=== PATIENT | male | born 1955 | race Caucasian/White ===

== ENCOUNTER 2019-04-02 10:17 | Inpatient (IN) | payer MEDICARE ==
[2019-04-02] MEDS ORDERED: KETOROLAC TROMETHAMINE 30 MG/1 ML VIAL IM ONE (10:36)
[2019-04-02] MEDS ORDERED: DIPHTH,PERTUSS(ACELL),TET 0.5 ML DISP.SYRIN IM ONE ×2 (10:37→11:01)
--- NOTE | 2019-04-02 10:43 | PDOC ---
History of Present Illness - General Chief Complaint: Pain, Acute Stated Complaint: RT. ARM PAIN/ FALL Time Seen by Provider: 04/02/19 10:29 History Source: Patient - History of Present Illness Occurred: reports: yesterday Pain Location: reports: lower extremity, upper extremity Past History - Past Medical History Allergies/Adverse Reactions: Allergies Allergy/AdvReac Type Severity Reaction Status Date / Time No Known Allergies Allergy Verified 04/02/19 10:21 - Suicide/Smoking/Psychosocial Hx Smoking History: Never smoked Review of Systems - Review of Systems Respiratory: No: Shortness of Breath Cardiac (ROS): No: Chest Pain ABD/GI: No: Nausea, Vomiting Musculoskeletal: Yes: Joint Pain. No: Back Pain, Neck Pain Neurological: No: Headache, Numbness, Tingling, Weakness, Dizziness *Physical Exam - Vital Signs Last Vital Signs Temp Pulse Resp BP Pulse Ox 98.7 F 94 H 18 166/94 99 04/02/19 10:21 04/02/19 10:21 04/02/19 10:21 04/02/19 10:21 04/02/19 10:21 - Physical Exam General Appearance: Yes: Appropriately Dressed, Mild Distress HEENT: positive: Normal Voice Neck: positive: Supple. negative: Tender, Decreased range of motion Respiratory/Chest: positive: Lungs Clear, Normal Breath Sounds. negative: Respiratory Distress Cardiovascular: positive: Regular Rate, S1, S2 Gastrointestinal/Abdominal: positive: Soft. negative: Tender Musculoskeletal: positive: Other (~3cm linear lac to R mccann, abrasion to L mccann) Extremity: positive: Other (+deformity w/ ecchymosis and LROM to R shoulder, no snuffbox ttp, NVI) Integumentary: positive: Dry, Warm Neurologic: positive: Fully Oriented, Alert, Motor Strength 5/5 Deep Tendon Reflexes: Tricep (R): 2+ ED Treatment Course - LABORATORY CBC & Chemistry Diagram: 04/02/19 12:32 04/02/19 11:43 - RADIOLOGY Radiology Studies Ordered: Category Date Time Status SHOULDER-RIGHT [RAD] Stat Radiology 04/02/19 10:37 Ordered Medical Decision Making - Medical Decision Making 04/02/19 10:39 63-year-old male, denies any past medical history, here with multiple injuries s /pfall. Patient states yesterday morning he fell 5 feet off a ladder and injured b/l lower extremities and R shoulder. Denies hitting head, and no LOC, headache, dizziness, nausea or vomiting. Not on any blood thinners. Ambulatory since fall. No CP/dizziness prior to fall See exam RLE lac and possible R shoulder/fx/dislocation s/p mechanical fall yesterday No head injury and not on blood thinners -pain control -boostrix -XR -lac repair -anticipate dc 04/02/19 11:26 Patient has dislocated humeral head fracture on x-ray. Will get pre-op labs. Ortho consulted and PA states he will discuss case w/ ortho attg and call me back with plan 04/02/19 13:56 After > 1 hr, no call back from ortho despite multiple attempts by scribes. Pt continues to c/o pain. Case d/w Dr Taylor and pt admitted. Ortho informed of dispo and will follow inhouse *DC/Admit/Observation/Transfer Diagnosis at time of Disposition: Shoulder fracture, right Qualifiers: Encounter type: initial encounter Fracture type: closed Qualified Code(s): S42.91XA - Fracture of right shoulder girdle, part unspecified, initial encounter for closed fracture - Discharge Dispostion Decision to Admit order: Yes - Referrals Referrals: Angie Taylor MD [Primary Care Provider] - - Patient Instructions - Post Discharge Activity
[2019-04-02] MEDS ORDERED: KETOROLAC TROMETHAMINE 30 MG/1 ML VIAL ONE (11:01)
[2019-04-02 12:15] LABS: INR 0.97 (0.83-1.09); PROTHROMBIN TIME (PATIENT) 11.4 SEC (9.7-13.0)
[2019-04-02 12:19] LABS: BILIRUBIN,TOTAL 1.6 mg/dL (0.2-1); BLOOD UREA NITROGEN 13.9 mg/dL (7-18); CALCIUM 9.2 mg/dL (8.5-10.1); CREATININE 1.2 mg/dL (0.55-1.3); POTASSIUM 4.1 mmol/L (3.5-5.1); TOT PROT 7.4 g/dl (6.4-8.2)
--- NOTE | 2019-04-02 12:23 | PDOC ---
*Physical Exam - Vital Signs Last Vital Signs Temp Pulse Resp BP Pulse Ox 98.7 F 94 H 18 166/94 99 04/02/19 10:21 04/02/19 10:21 04/02/19 10:21 04/02/19 10:21 04/02/19 10:21 ED Treatment Course - LABORATORY CBC & Chemistry Diagram: 04/02/19 11:43 04/02/19 11:43 - ADDITIONAL ORDERS Additional order review: Laboratory Results 04/02/19 04/02/19 11:43 11:43 PT with INR 11.40 INR 0.97 Sodium 136 Potassium 4.1 Chloride 101 Carbon Dioxide 28 Anion Gap 8 BUN 13.9 Creatinine 1.2 Est GFR (CKD-EPI)AfAm 73.11 Est GFR (CKD-EPI)NonAf 63.08 Random Glucose 144 H Calcium 9.2 Total Bilirubin 1.6 H AST 54 H ALT 45 Alkaline Phosphatase 80 Total Protein 7.4 Albumin 4.0 04/02/19 11:43 RBC Cancelled MCV Cancelled MCHC Cancelled RDW Cancelled MPV Cancelled Neutrophils % Cancelled Lymphocytes % Cancelled Monocytes % Cancelled Eosinophils % Cancelled Basophils % Cancelled - Medications Given in the ED: ED Medications Discontinued Medications Generic Name Dose Route Start Last Admin Trade Name Freq PRN Reason Stop Dose Admin Diphtheria/Tetanus/Acell Pertussis 0.5 ml 04/02/19 10:37 04/02/19 11:10 Boostrix - IM 04/02/19 10:38 0.5 ml .ONCE ONE Administration Ketorolac Tromethamine 30 mg 04/02/19 10:36 04/02/19 11:10 Toradol Injection - IM 04/02/19 10:37 30 mg ONCE ONE Administration Medical Decision Making - Medical Decision Making 04/02/19 12:22 Patient seen and evaluated with the nurse practitioner. I agree with the overall evaluation, assessment, and management with the following summary of visit: 64-year-old male presents with right shoulder and right leg pain status post mechanical fall yesterday. Agree with exam findings right upper extremity shoulder swelling and tenderness with limited range of motion, neurovascularly intact distally with full hamstring. Right mccann laceration X-ray findings as noted Orthopedics consult, sling applied Laceration repair per procedure note Disposition accordingly *DC/Admit/Observation/Transfer - Referrals Referrals: Angie Taylor MD [Primary Care Provider] - - Patient Instructions - Post Discharge Activity
[2019-04-02 12:46] LABS: BASO % 0.8 % (0-2.0); HEMATOCRIT 37.7 % (35.4-49); HEMOGLOBIN 13.2 GM/dL (11.7-16.9); LYMPH % 10.6 % (8-40); MCH 35.9 pg (25.7-33.7); MCHC 34.9 g/dl (32.0-35.9); MEAN PLT VOLUME 8.2 fl (7.5-11.1); MONO % 9.3 % (3.8-10.2); NEUT % 79.3 % (42.8-82.8); PLATELET COUNT 180 K/MM3 (134-434); RBC 3.66 M/mm3 (4.00-5.60); RDW 12.9 % (11.9-15.9); WHITE BLOOD COUNT 8.2 K/mm3 (4.0-10.0)
--- NOTE | 2019-04-02 12:46 | PDOC ---
*Physical Exam - Vital Signs Last Vital Signs Temp Pulse Resp BP Pulse Ox 98.7 F 94 H 18 166/94 99 04/02/19 10:21 04/02/19 10:21 04/02/19 10:21 04/02/19 10:21 04/02/19 10:21 ED Treatment Course - LABORATORY CBC & Chemistry Diagram: 04/02/19 12:32 04/02/19 11:43 - ADDITIONAL ORDERS Additional order review: Laboratory Results 04/02/19 04/02/19 11:43 11:43 PT with INR 11.40 INR 0.97 Sodium 136 Potassium 4.1 Chloride 101 Carbon Dioxide 28 Anion Gap 8 BUN 13.9 Creatinine 1.2 Est GFR (CKD-EPI)AfAm 73.11 Est GFR (CKD-EPI)NonAf 63.08 Random Glucose 144 H Calcium 9.2 Total Bilirubin 1.6 H AST 54 H ALT 45 Alkaline Phosphatase 80 Total Protein 7.4 Albumin 4.0 04/02/19 11:43 RBC Cancelled MCV Cancelled MCHC Cancelled RDW Cancelled MPV Cancelled Neutrophils % Cancelled Lymphocytes % Cancelled Monocytes % Cancelled Eosinophils % Cancelled Basophils % Cancelled - Medications Given in the ED: ED Medications Discontinued Medications Generic Name Dose Route Start Last Admin Trade Name Freq PRN Reason Stop Dose Admin Diphtheria/Tetanus/Acell Pertussis 0.5 ml 04/02/19 10:37 04/02/19 11:10 Boostrix - IM 04/02/19 10:38 0.5 ml .ONCE ONE Administration Ketorolac Tromethamine 30 mg 04/02/19 10:36 04/02/19 11:10 Toradol Injection - IM 04/02/19 10:37 30 mg ONCE ONE Administration Medical Decision Making - Medical Decision Making 04/02/19 12:47 Right lower extremity 4cm linear laceration repaired. See PA note for complete H &P *DC/Admit/Observation/Transfer Diagnosis at time of Disposition: Shoulder fracture, right Qualifiers: Encounter type: initial encounter Fracture type: closed Qualified Code(s): S42.91XA - Fracture of right shoulder girdle, part unspecified, initial encounter for closed fracture - Referrals - Patient Instructions - Post Discharge Activity Procedures - Laceration/Wound Repair Right Lower Anterior Leg Wound Length: 2.6 to 5.0 cm Wound Explored: clean, no foreign body present Wound's Depth, Shape: superficial, linear Irrigated w/ Saline: Yes Betadine Prep: No Anesthesia: 1% Lidocaine Amount of Anesthetic (ccs): 3 Wound Repaired With: Sutures Suture Size/Type: 4:0, nylon Number of Sutures: 9 Layer Closure: No Sterile Dressing Applied: No Splint Applied: No
[2019-04-02] MEDS ORDERED: morphine CARPU-JECT 4 MG/1 ML DISP.SYRIN IVPUSH ONE (14:18)
[2019-04-02] MEDS ORDERED: MORPHINE SULFATE 2 MG/ML VIAL ONE (14:22)
[2019-04-02 14:50] LABS: EPI CELLS 5.1 /HPF (0-5/HPF); HYALINE CASTS 10 /lpf (0-8); URINE APPEARANCE CLOUDY; URINE BACTERIA 26.6 /hpf (NEGATIVE); URINE BILIRUBIN 1+ (NEGATIVE); URINE COLOR ORANGE; URINE GLUCOSE (UA) TRACE (NEGATIVE); URINE KETONE TRACE (NEGATIVE); URINE LEUK ESTERASE NEGATIVE (NEGATIVE); URINE NITRITE POSITIVE (NEGATIVE); URINE PROTEIN 1+ (NEGATIVE); URINE RBC 3 /hpf (0-4); URINE WBC 3 /hpf (0-5)
--- NOTE | 2019-04-02 16:21 | EKG ---
Test Reason : Blood Pressure : / mmHG Vent. Rate : 082 BPM Atrial Rate : 082 BPM P-R Int : 192 ms QRS Dur : 100 ms QT Int : 406 ms P-R-T Axes : 024 -04 029 degrees QTc Int : 474 ms NORMAL SINUS RHYTHM INFERIOR INFARCT , AGE UNDETERMINED POSSIBLE ANTERIOR INFARCT , AGE UNDETERMINED ABNORMAL ECG NO PREVIOUS ECGS AVAILABLE Confirmed by MD Pardo Edward ([id number]) on 04/02/2019 4:21:12 PM Referred By: Confirmed By:Devyn Pardo MD
[2019-04-02] MEDS ORDERED: DOCUSATE SODIUM 100 MG CAPSULE (FP) PO ONE (17:29)
[2019-04-02] MEDS ORDERED: oxyCODONE HCL 5 MG TABLET PO PRN (17:31)
[2019-04-02] MEDS ORDERED: ACETAMINOPHEN 325 MG TABLET (FP) PO PRN ×2 (17:33→17:42)
[2019-04-02] MEDS ORDERED: IBUPROFEN 600 MG TABLET (FP) PO PRN ×2 (17:33→17:42)
--- NOTE | 2019-04-02 17:42 | CONSULT ---
Consult Consult Specialty:: ORTHO - History of Present Illness History of Present Illness: 64y/o male c/o right shoulder pain x1 day. he fell from a ladder yesterday and landed on his right side. He came to the ER this morning in pain. Was admitted. Pain worse with movement and better with rest. Denies any numbness or tingling in the extremity. No other associated, aggravating or relieving factors. - History Source Limitations to Obtaining History: No Limitations - Smoking History Smoking history: Never smoked Home Medications - Allergies Allergies/Adverse Reactions: Allergies Allergy/AdvReac Type Severity Reaction Status Date / Time No Known Allergies Allergy Verified 04/02/19 10:21 - Home Medications Home Medications: Ambulatory Orders Amlodipine Besylate [Norvasc -] 5 mg PO DAILY 04/02/19 Losartan Potassium [Cozaar -] 50 mg PO DAILY 04/02/19 Simvastatin 40 mg PO DAILY 04/02/19 Physical Exam Vital Signs: Vital Signs Temperature 98.3 F 04/02/19 14:45 Pulse Rate 78 04/02/19 14:45 Respiratory Rate 17 04/02/19 14:45 Blood Pressure 151/89 04/02/19 14:45 O2 Sat by Pulse Oximetry (%) 98 04/02/19 14:45 Constitutional: Yes: Well Nourished, No Distress, Calm Musculoskeletal: Yes: Other (Right shoulder: Moderate edema of the shoulder. Pain with motion of the shoulder. Diffuse tenderness along the proximal humerus. No tendnerness along the elbow, forearm, wrist or hand. Sensation intact distally. Good strengh with fingers spread, ok sign, thumbs up. Comparments soft.) Labs: CBC, BMP 04/02/19 12:32 04/02/19 11:43 Imaging - Results X-ray: Report Reviewed, Image Reviewed (Displaced proximal humerus fx.) Assessment/Plan #1 right proximal humerus fx -Plan for ORIF . Case discussed with Dr. castanon. -Pain control -Sling immoblization -NPO after midnight
[2019-04-02 17:49] VITALS: BMI 26.4
[2019-04-02] MEDS: oxyCODONE HCL 5 MG TABLET PO PRN (18:41)
[2019-04-02] MEDS: ATORVASTATIN CA 20 MG TABLET (FP) PO SCH (21:55)
[2019-04-03] MEDS: oxyCODONE HCL 5 MG TABLET PO PRN ×4 (04:24→21:55)
[2019-04-03] MEDS ORDERED: CEFAZOLIN 1 GM in DEXTROSE 5%-WATER - 50 ML IVPB SCH (09:15)
[2019-04-03] MEDS ORDERED: ceFAZolin SODIUM 1 GM VIAL ONE ×2 (10:01→17:14)
[2019-04-03] MEDS ORDERED: DEXTROSE 5%-WATER - 50 ML IVPB ONE ×2 (10:02→17:14)
[2019-04-03] MEDS: amLODIPine BESYLATE 5 MG TABLET (FP) PO SCH (10:04)
[2019-04-03] MEDS: CEFAZOLIN 1 GM in DEXTROSE 5%-WATER - 50 ML IVPB SCH ×2 (10:04→17:29)
--- NOTE | 2019-04-03 10:50 | HP ---
DATE OF ADMISSION: 04/02/2019 HISTORY OF PRESENT ILLNESS: This is a 64-year-old male known to have hypertension, hyperlipidemia, who was doing some painting work, fell from the ladder about 5 feet high and fractured his right humerus. In the ER, he was evaluated by the ortho the open reduction, internal fixation scheduled for surgery on . Patient mainly admitted to the hospital for pain management. At this time, he is tolerating the pain well. PHYSICAL EXAMINATION: Vital signs: Today, his blood pressure is 150/95, pulse 62, respirations 20, temperature 98. HEENT: Unremarkable. Neck: Supple. No JVD. Lungs: Clear. Heart: S1, S2 normal. No S3, S4. Abdomen: Soft. Extremities: Legs, no edema. Neurological: Examination grossly normal. DIAGNOSTIC DATA: X-ray of the right shoulder shows displaced fracture, head of right humerus. EKG, normal sinus rhythm. LABORATORY REPORTS: Chemistry: Sodium 136, potassium 4.1, chloride 101, CO2 at 28, BUN 13.9, creatinine 1.2. WBC 8, hemoglobin 13.3, platelet count 180. FINAL DIAGNOSIS: Fracture, right shoulder, hypertension, hyperlipidemia. Patient is cleared for the surgical intervention. No anesthesia problems. Noe [id number]
--- NOTE | 2019-04-03 13:14 | PN ---
Progress Note (short form) - Note Progress Note: This is a 64 yo male found to have right proximal humerus fracture s/p mechanical fall 2 days ago. Patient is sitting up comfortably in bed, right arm in sling. Had some pain overnight. Denies any numbness, tingling down his arm. Last Vital Signs Temp Pulse Resp BP Pulse Ox 98.2 F 99 H 20 151/95 98 04/03/19 06:26 04/03/19 06:26 04/03/19 06:26 04/03/19 06:26 04/02/19 21:00 PE: RUE Diffuse ecchymosis to upper arm Moderate edema to shoulder Tenderness about the proximal humerus NVI Abnormal Lab Results 04/02/19 14:28 Urine Protein 1+ H Urine Ketones Trace H Urine Nitrite Positive H Urine Bilirubin 1+ H A: right proximal humerus fracture P: Plan for ORIF tomorrow afternoon NPO at midnight CT of right UE ordered Remain in sling Pain control
[2019-04-03] MEDS: ATORVASTATIN CA 20 MG TABLET (FP) PO SCH (21:18)
[2019-04-04] MEDS ORDERED: DEXTROSE 5%-WATER - 50 ML IVPB ONE ×3 (01:19→16:53)
[2019-04-04] MEDS ORDERED: ceFAZolin SODIUM 1 GM VIAL ONE ×3 (01:19→16:53)
[2019-04-04] MEDS: CEFAZOLIN 1 GM in DEXTROSE 5%-WATER - 50 ML IVPB SCH ×3 (02:00→17:38)
[2019-04-04] MEDS: amLODIPine BESYLATE 5 MG TABLET (FP) PO SCH (09:40)
[2019-04-04] MEDS: oxyCODONE HCL 5 MG TABLET PO PRN ×2 (09:40→21:31)
--- NOTE | 2019-04-04 09:46 | PN ---
Progress Note, Physician Chief Complaint: Pain Rt shoulder History of Present Illness: Scheduled for Rt shoulder ORISF - Current Medication List Current Medications: Active Medications Acetaminophen (Tylenol -) 650 mg PO Q4H PRN PRN Reason: PAIN LEVEL 1 - 3 Last Admin: 04/03/19 17:30 Dose: 650 mg Amlodipine Besylate (Norvasc -) 5 mg PO DAILY MARNI Last Admin: 04/04/19 09:40 Dose: 5 mg Atorvastatin Calcium (Lipitor -) 20 mg PO HS MARNI Last Admin: 04/03/19 21:18 Dose: 20 mg Cefazolin Sodium 1 gm/ (Dextrose) 50 mls @ 100 mls/hr IVPB Q8H-IV MARNI Last Admin: 04/04/19 09:39 Dose: 100 mls/hr Ibuprofen (Motrin -) 600 mg PO Q6H PRN PRN Reason: PAIN LEVEL 4 - 6 Oxycodone HCl (Roxicodone -) 5 mg PO Q4H PRN PRN Reason: PAIN LEVEL 1-5 Last Admin: 04/04/19 09:40 Dose: 5 mg Oxycodone HCl (Roxicodone -) 5 mg PO Q4H PRN PRN Reason: PAIN LEVEL 6-10 Last Admin: 04/03/19 21:55 Dose: 5 mg - Objective Vital Signs: Vital Signs Temperature 98.1 F 04/04/19 05:41 Pulse Rate 85 04/04/19 05:41 Respiratory Rate 21 H 04/04/19 05:41 Blood Pressure 124/88 04/04/19 05:41 O2 Sat by Pulse Oximetry (%) 98 04/03/19 21:00 Constitutional: Yes: Mild Distress Eyes: Yes: WNL HENT: Yes: WNL Neck: Yes: WNL Cardiovascular: Yes: WNL Respiratory: Yes: WNL Gastrointestinal: Yes: Normal Bowel Sounds ...Rectal Exam: Yes: WNL, Deferred Genitourinary: Yes: WNL Breast(s): Yes: WNL Edema: No Peripheral Pulses WNL: Yes Neurological: Yes: Alert Labs: CBC, BMP 04/02/19 12:32 04/02/19 11:43 INR, PTT INR 0.97 (0.83-1.09) 04/02/19 11:43 Assessment/Plan Cleared for surgery
--- NOTE | 2019-04-04 17:54 | PN ---
Progress Note (short form) - Note Progress Note: Pt lying in bed pain controlled no new complaints PE af vss RUE in sling thumbs up, ok sign, finger cross intact sens int to LT Cr<2 A: R proximal humerus fracture P: pt was scheduled for surgery today but case got bumped rather than start late at night, it was felt that postponing to tomorrow was a safer option pt will be on schedule for 330pm, NPO after 7AM ( can have early breakfast) reviewed surgical r/b/a with patient risks include bleeding, infection, neurovascular injury, need for further surgery, post op pain and stiffness, nonunion, malunion, hardware failure or cutout reviewed option of reverse replacement if shoulder doesn't heal reviewed post op rehabilitation protocol addressed pts questions and concerns plan for OR tomorrow
[2019-04-04] MEDS: ATORVASTATIN CA 20 MG TABLET (FP) PO SCH (21:32)
[2019-04-05] MEDS ORDERED: ceFAZolin SODIUM 1 GM VIAL ONE ×3 (01:38→16:45)
[2019-04-05] MEDS ORDERED: DEXTROSE 5%-WATER - 50 ML IVPB ONE ×3 (01:38→16:45)
[2019-04-05] MEDS: CEFAZOLIN 1 GM in DEXTROSE 5%-WATER - 50 ML IVPB SCH ×3 (01:43→18:52)
[2019-04-05] MEDS: amLODIPine BESYLATE 5 MG TABLET (FP) PO SCH (09:14)
[2019-04-05] MEDS ORDERED: BUPIVACAINE HCL/PF 0.5% (5MG/ML) 10 ML VIAL ONE (15:50)
[2019-04-05] MEDS ORDERED: DEXAMETHASONE SOD PHOSPHATE 4 MG/1 ML VIAL ONE ×2 (15:50→17:39)
[2019-04-05] MEDS ORDERED: PROPOFOL 20 ML ONE ×2 (15:50→19:59)
[2019-04-05] MEDS ORDERED: ROCURONIUM BROMIDE 50 MG/5 ML SYRINGE ONE (15:52)
[2019-04-05] MEDS ORDERED: DEXAMETHASONE SOD PHOSPHATE/PF 10 MG/ML SDV ONE (15:53)
[2019-04-05] MEDS ORDERED: SUCCINYLCHOLINE CHLORIDE 200 MG/10 ML SYRINGE ONE (15:53)
[2019-04-05] MEDS ORDERED: MIDAZOLAM HCL 2 MG/2 ML SINGLE DOSE VIAL ONE ×3 (15:53→19:01)
[2019-04-05] MEDS ORDERED: ceFAZolin SODIUM 1 GM VIAL IVPB ONE (16:20)
[2019-04-05] MEDS ORDERED: LIDOCAINE 1%-EPI 1:100,000 30 ML MDV IJ ONE (16:49)
[2019-04-05] MEDS ORDERED: TRANEXAMIC ACID 1000 MG/10 ML VIAL ONE (16:50)
[2019-04-05] MEDS ORDERED: KETOROLAC TROMETHAMINE 30 MG/1 ML VIAL ONE (17:39)
[2019-04-05] MEDS ORDERED: BACITRACIN 50,000 UNITS VIAL NR ONE (19:54)
[2019-04-05] MEDS ORDERED: ACETAMINOPHEN 325 MG TABLET (FP) PO PRN ×2 (20:26→20:44)
[2019-04-05] MEDS ORDERED: ACETAMINOPHEN 1000 MG/100 ML VIAL (NON FORMULARY) IVPB ONE (20:32)
[2019-04-05] MEDS ORDERED: ONDANSETRON 4 MG/2 ML VIAL IVPUSH PRN (20:32)
[2019-04-05] MEDS ORDERED: LACTATED RINGERS SOLUTION 1,000 ML/1,000 ML INFUS.BAG IV SCH (20:45)
[2019-04-05] MEDS ORDERED: LACTATED RINGERS SOLUTION 1,000 ML IV SCH (20:45)
[2019-04-05] MEDS ORDERED: PT OWN MED DRAWER 7, Y5N ONE (21:46)
[2019-04-05] MEDS ORDERED: ATORVASTATIN CA 20 MG TABLET (FP) PO SCH (22:00)
[2019-04-05] MEDS: oxyCODONE HCL 10 MG SUSTAINED ACTING TABLET PO SCH (22:02)
[2019-04-05] MEDS: INDOMETHACIN 25 MG CAPSULE PO SCH (22:03)
[2019-04-06] MEDS ORDERED: DEXTROSE 5%-WATER - 50 ML IVPB ONE ×2 (01:03→09:19)
[2019-04-06] MEDS ORDERED: ceFAZolin SODIUM 1 GM VIAL ONE ×2 (01:03→09:19)
[2019-04-06] MEDS: CEFAZOLIN 1 GM in DEXTROSE 5%-WATER - 50 ML IVPB SCH ×2 (02:35→09:28)
[2019-04-06] MEDS: INDOMETHACIN 25 MG CAPSULE PO SCH (06:11)
--- NOTE | 2019-04-06 06:36 | OP ---
DATE OF OPERATION: 04/05/2019 PREOPERATIVE DIAGNOSIS: Right proximal humerus fracture. POSTOPERATIVE DIAGNOSIS: Right proximal humerus fracture. PROCEDURE: Right proximal humerus hemiarthroplasty. SURGEON: Channing Mims M.D. HVAC OPERATIONS TECHNICIAN: Dee Celestin, physician environmental assistant, whose skillful assistance was necessary for the safe and timely performance of this procedure. Ms. Baca was able to provide limb positioning, retraction, assist in excising the bony fragments of the fractured head as well as inserting component and providing rotator cuff repair afterwards. ANESTHESIA: Regional plus LMA. POSTOPERATIVE CONDITION: Stable. COMPLICATIONS: None. IMPLANTS: [place] cemented fracture stem size 11 with size 52 x 17 mm humeral head and antibiotic cement. INDICATIONS: This is a pleasant gentleman who suffered a comminuted proximal humerus fracture. Given the wide displacement present and comminution present, it was felt that operative management was his best option. We discussed that based on his CT, it was felt that an open reduction, internal fixation would provide satisfactory fixation albeit with the risk of potentially not healing. We discussed the option of hemiarthroplasty should the fracture not be fixable. I reviewed surgical risks including bleeding, infection, neurovascular injury, need for further surgery, postoperative pain and stiffness, nonunion, malunion, hardware failure or cutout, shoulder instability, possible need for conversion later to a total reverse total shoulder replacement. We discussed medical risks such as heart attack, stroke, DVT, PE and . I discussed the use of perioperative antibiotic and DVT prophylaxis. I addressed all the patient's questions and concerns, he voiced understanding, and elected to proceed. DESCRIPTION OF PROCEDURE: The patient was brought to the operating room after administration of regional block in the preoperative holding area. The patient was then placed into the beach chair position, careful to pad all the bony prominences, maintain neutral alignment of the cervical spine. The right upper extremity was then prepped and draped in the usual sterile fashion. A preoperative dose of antibiotics given, and the usual timeout procedure was performed. The incision was now planned out over the anterior portion of the shoulder just lateral to the coracoid. Incision was made through skin and through subcutaneous tissue. Electrocautery was used to maintain hemostasis. The area around the incision was injected prior to the incision with 1% lidocaine with epinephrine to limit bleeding. The fascia over the deltopectoral interval was identified. Using blunt spreading, the cephalic vein was identified and then retracted and the interval was exposed using finger dissection down to the anterior aspect of the humerus. The humerus was now encountered, found to be highly comminuted as anticipated. Using a Derra retractor, the lateral aspect was exposed. The lesser tuberosity and greater tuberosity fragments were now sutured using FiberWire suture. The periosteal elevator was now slid down the lateral aspect of the humerus in order to provide a seating spot for the plate. A curet was used to remove any soft callus from the bony debris, which was too small to repair fracture site. The wound was irrigated. A plate was now chosen and affixed to the lateral aspect of the humerus utilizing the single 3.5 screw in the sliding hole as well as a single K-wire to maintain the alignment of the plate. Plate height was verified fluoroscopically. The tuberosity fragments were now reduced to the plate and K-wires were inserted. At this point, the humeral head was seen on fluoroscopy to be now reduced and significantly impacted. An elevator was placed into the joint to the humeral head through the rotator interval. After placing the elevator, it was found that the humeral head was free of all soft tissue attachments. Given the complete lack of soft tissue attachments, it was felt that the head would be most likely nonviable, would have a high risk of going on to avascular necrosis. After making this determination, it was felt that hemiarthroplasty provided better outcome for the patient than trying to fix the humeral head which had a high risk of failing. The humeral head was then manually withdrawn without having to remove any soft tissue attachments. Some of the bony comminution was removed about the fracture site. The tuberosity fragments were debrided so that only a cortical shell and a small amount of medullary bone were left. This provided a smooth surface for later fixation to the prosthesis. The Derra retractor was now placed behind the humeral shaft and canal finder was passed. Hand reaming was then done up to a size 13. The trial was now inserted and toggled into place, careful to maintain version, estimating the humeral height based on the distance from the lesser tuberosity to the top of the prosthesis being 5 cm. After applying the 52-mm humeral head based on measurements of the [place] head, it was reduced and passed through a range of motion. There was good stability and no excessive tightness. The trial was then removed. Canal was irrigated. A cement restrictor was then inserted. Cement was now injected into the humeral canal. The final stem was now inserted, using care to maintain the proper height and version. After allowing the cement to harden, the wound was copiously irrigated with pulse lavage. The trial was now again applied and stability was once again assessed and was satisfactory. The trial head was then removed, and the final head was malleted into place on the [place] taper. The head was checked and was now stable. The head was now reduced. Utilizing the previously passed sutures as well as additional sutures passed through the bony portions of the construct by placing 2.5-mm drill holes, the greater tuberosity was repaired to both the stem as well as 2 drill holes placed in the proximal portion of the humerus. Both visual inspection and fluoroscopy confirmed that the greater tuberosity and lesser tuberosity were adequately reduced. Shoulder was passed through a range of motion, the repair was found to be stable. At this point the wound was once again pulse lavaged. The deltopectoral interval was approximated using widely spaced number. 2 FiberWire sutures as markers, should any future procedure need to be done and also with number 1 Vicryl in between the FiberWires. The subcutaneous tissue was approximated using 2-0 Vicryl. The skin was closed using running 3-0 nylon. Sterile dressings were placed. The patient was extubated and transferred to recovery room in stable condition. Noe [id number]
[2019-04-06 08:21] LABS: HEMATOCRIT 32.8 % (35.4-49); HEMOGLOBIN 11.7 GM/dL (11.7-16.9); MCH 36.4 pg (25.7-33.7); MCHC 35.6 g/dl (32.0-35.9); MEAN CELL VOLUME 102.2 fl (80-96); MEAN PLT VOLUME 8.3 fl (7.5-11.1); PLATELET COUNT 238 K/MM3 (134-434); RBC 3.21 M/mm3 (4.00-5.60); RDW 12.9 % (11.9-15.9); WHITE BLOOD COUNT 10.4 K/mm3 (4.0-10.0)
[2019-04-06 08:32] LABS: BLOOD UREA NITROGEN 20.3 mg/dL (7-18); CALCIUM 8.7 mg/dL (8.5-10.1); POTASSIUM 4.3 mmol/L (3.5-5.1)
--- NOTE | 2019-04-06 09:10 | PN ---
Progress Note (short form) - Note Progress Note: Pt standing comfortably in his room Minimal pain Has some movement in RUE PE af vss RUE in sling dressing CDI weak finger and wrist flex/extension 2+ rad pulse diffusely decreased sensation A: R proximal humerus fracture P: pt doing well pod 1 anticipate more pain and also return of NV function when block wears off later today or tonight ok for patient to go home today can go home on percocet and indomethacin (for pain relief and prevention of heterotopic ossification) plan for follow up in 1 week in the office use sling at all times
[2019-04-06] MEDS ORDERED: PT OWN MED DRAWER 7, Y5N ONE (09:20)
[2019-04-06] MEDS: oxyCODONE HCL 10 MG SUSTAINED ACTING TABLET PO SCH (09:27)
[2019-04-06 09:34] VITALS: BP 141/85; PULSE 98; TEMP 97.8
[2019-04-06] MEDS ORDERED: amLODIPine BESYLATE 5 MG TABLET (FP) PO SCH (10:00)
--- NOTE | 2019-04-06 12:14 | DS ---
Physical Examination Vital Signs: Vital Signs Temperature 97.8 F 04/06/19 09:31 Pulse Rate 98 H 04/06/19 09:31 Respiratory Rate 20 04/06/19 09:31 Blood Pressure 141/85 04/06/19 09:31 O2 Sat by Pulse Oximetry (%) 99 04/06/19 09:00 Findings/Remarks: Tolerated surgery well DC home Constitutional: Yes: No Distress Eyes: Yes: WNL HENT: Yes: WNL Neck: Yes: WNL Cardiovascular: Yes: WNL Respiratory: Yes: WNL Gastrointestinal: Yes: WNL ...Rectal Exam: Yes: WNL Renal/: Yes: WNL Musculoskeletal: Yes: WNL, Joint Stiffness Edema: No Peripheral Pulses WNL: Yes Wound/Incision: Yes: Clean/Dry Neurological: Yes: Alert Labs: CBC, BMP 04/06/19 06:50 04/06/19 06:50 Discharge Summary Reason For Visit: FRACTURE OF RIGHT SHOULDER Current Active Problems Shoulder fracture, right (Acute) - Instructions - Home Medications Comprehensive Discharge Medication List: Ambulatory Orders Amlodipine Besylate [Norvasc -] 5 mg PO DAILY 04/02/19 Losartan Potassium [Cozaar -] 50 mg PO DAILY 04/02/19 Simvastatin 40 mg PO DAILY 04/02/19
--- NOTE | 2019-04-06 16:26 | PN ---
HC Provider Note Provider Note: Anesthesia Post-op Note Pt seen s/p GA/PNB for r shoulder hemiarthroplasy Pt awake alert ambulating Pt denies n/v, urinary retention, puritis, good pain control from block VSS no apparent anesthesia complications Margareth Martin.
--- NOTE | 2019-04-10 19:44 | PATH ---
Surgical Pathology Report Patient Name: OSKAR VEGA Med. Rec. #: [id number] /Age/Gender: 1955 (Age: 64) / M Account: [id number] Location: [address] [place] [address]/[facility] Taken: 04/05/2019 Received: 04/08/2019 Reported: 04/10/2019 Physicians: Channing iMms M.D. Specimen(s) Received BONE, HUMERAL HEAD, RIGHT Clinical History Fracture of right proximal humerus Final Diagnosis BONE, HUMERAL HEAD, RIGHT SHOULDER, HEMIARTHROPLASTY: BONE WITH INTERSTITIAL HEMORRHAGE CONSISTENT WITH FRACTURE. Electronically Signed Darlin Miller M.D. Gross Description Received in formalin labeled "bone right humeral head," is a 4.7 x 4.2 x 3.0 cm portion of bone, consistent with humeral head. The margin of resection is brown, jagged and hemorrhagic. There are no areas of eburnation identified. The articular surface is [place]-brown and focally granular. The underlying trabecular bone is focally hemorrhagic. A pharmaceutical sales representative section is submitted in one cassette, following decalcification. /04/08/2019 [facility]04/08/2019
== END 2019-04-06 13:33 | disposition home or self-care (01) | DRG 322 ==
LOC: JER 10:17 → JERBED 13:59 → J6S 15:53
PROVIDERS: ADMIT Internal Medicine; ATTEND Internal Medicine
PROC: 0RRJ0JZ Replacement of Right Shoulder Joint with Synthetic Substitute, Open Approach (ICD-10-PCS; principal; 2019-04-05 15:30)
DX: S42.291A Other displaced fracture of upper end of right humerus, initial encounter for closed fracture (principal); W11.XXXA Fall on and from ladder, initial encounter; Y93.89 Activity, other specified; Y92.89 Other specified places as the place of occurrence of the external cause; Y99.9 Unspecified external cause status
CPT/HCPCS: 36415; 71045-TC-FY; 73030-TC-RT-FY; 73200-TC-RT; 80048; 80053; 81003; 85025; 85027; 85610; 86850; 86900; 86901; 88307-TC; 88311-TC; 90715; 93005; 93010; 94760; 99283-25; J0131